=== PATIENT | female | born 1950 | race Caucasian/White ===

== ENCOUNTER 2017-01-13 13:10 | Emergency (ER) | payer MEDICARE ==
[~2017-01-13] VITALS: Ht 152.4 cm; Wt 49.5 kg
[~2017-01-13 13:10] MED LIST: ALLE25CA OR; ASPI325T OR; CALCIUM PO; COLA100C2 OR; MAGNESIUM PO; MULTIVIT PO; NAPR500T OR; OMEGA 3 PO; PERC5TAB8 OR; PERC7.5T8 OR; VITAMIN D PO
[2017-01-13] MEDS ORDERED: ASPI1TAB PO (13:22)
[2017-01-13] MEDS ORDERED: NS 1,000 ML IV ONE (16:30)
[2017-01-13 17:24] LABS: BASO # 0.1 K/mm3 (0.0-0.2); BASO % 0.9 % (0.0-1.0); EOS % 0.5 % (0.0-3.0); LARGE UNSTAINED CELL # 0.2 K/mm3 (0.0-0.4); LARGE UNSTAINED CELL % 2.3 % (0.0-4.0); LYMPH # 0.7 K/mm3 (1.5-4.5); LYMPH % 8.1 % (24.0-44.0); MEAN CORPUSCULAR HEMOGLOBIN 32.1 pg (27.0-33.0); MEAN CORPUSCULAR VOLUME 94.6 fl (80.0-96.0); MONO # 0.5 K/mm3 (0.0-0.8); NEUTROPHILS # 7.1 K/mm3 (1.8-7.7); NEUTROPHILS % 82.1 % (36.0-66.0); PLATELET COUNT, AUTOMATED 178 k/mm3 (150-450); RED CELL DISTRIBUTION WIDTH 11.8 % (11.5-14.5); WHITE BLOOD COUNT 8.6 K/mm3 (4.0-10.0)
[2017-01-13 17:31] LABS: ALBUMIN/GLOBULIN RATIO 1.21 (1.00-1.93); ALKALINE PHOSPHATASE 19 U/L (45-117); ALT/SGPT 20 U/L (12-78); AMYLASE 43 U/L (25-115); ANION GAP 9 MEQ/L (8-16); AST/SGOT 20 U/L (15-37); BILIRUBIN,DIRECT 0.3 MG/DL (0.0-0.2); BILIRUBIN,TOTAL 1.2 MG/DL (0.2-1.0); BLOOD UREA NITROGEN 14 MG/DL (7-18); CALCIUM LEVEL 9.4 MG/DL (8.8-10.2); CARBON DIOXIDE LEVEL 28 MEQ/L (21-32); CHLORIDE LEVEL 103 MEQ/L (98-107); CREATININE FOR GFR 0.77 MG/DL (0.55-1.02); GLOMERULAR FILTRATION RATE > 60.0 (>45); GLUCOSE, FASTING 87 MG/DL (80-110); POTASSIUM SERUM 4.4 MEQ/L (3.5-5.1); SODIUM LEVEL 140 MEQ/L (136-145); TOTAL PROTEIN 7.3 GM/DL (6.4-8.2)
[2017-01-13] MEDS ORDERED: ISOVUE-370 76% 100ML VIAL (Q9967) As Ordered ONE (17:36)
[2017-01-13] MEDS ORDERED: ACETAMINOPHEN TAB 650MG DOSE (2X325MG) PO ONE (17:45)
--- NOTE | 2017-01-13 19:30 | REPUSA ---
HISTORY: ABD/RECTAL PAIN - PT SAID LOWER ABD PAIN. TECHNIQUE: Axial CT imaging of abdomen and pelvis with sagittal and coronal reformatted imaging, with intravenous contrast enhancement. DLP= 307 mGy-cm. FINDINGS: Lung bases are clear. Bone windows demonstrate stable postsurgical changes at L4 and L5. There is 0.6 cm anterospondylolisthesis of L4 upon L5 and there appears to be a tiny posterior chip c orner fracture at the inferior posterior margin of the L4 vertebral body. There is a smooth walled b one cyst containing focal irregular calcifications seen at the posterior inferior margin of the ilium on image 72. Follow-up imaging is suggested as indicated to evaluate for differential diagnostic po ssibilities, although the lesion appears to be relatively benign. Liver is of normal size with no liver mass seen. Intrahepatic biliary tree is of normal caliber. Mu ltiple small gallstones are seen in the gallbladder. No pericholecystic fluid or gallbladder wall th ickening is seen. Distal common bile duct is dilated measuring 7 mm, but no common bile duct stone o r mass is seen. Spleen, pancreas, stomach, duodenum, and adrenal glands are normal. Both kidneys function without ev idence of mass lesion, obstruction, or calcification seen. Abdomen a aorta and IVC are normal and no retroperitoneal adenopathy is seen. There is an abnormal large collection of serpiginous contrast enhanced patent pelvic vein varicositie s identified across the entire pelvis from the right adnexa to the left adnexa. This may represent p elvic congestion syndrome. Patient is status post hysterectomy but there is no distinct soft tissue mass in the mid pelvis between the bladder and rectum Follow-up detailed imaging with transvaginal an d transabdominal pelvic ultrasound examination, and consideration of MRI with and without contrast is suggested as indicated to identify any associated pathologic mass lesion. The urinary bladder appea rs normal and the rectum appears normal. The remainder of the bowel is normal with no evidence of sanju wel wall mass lesion, obstruction, perforation, inflammatory reaction, or evidence of diverticulitis, and the appendix is normal. IMPRESSION: 1. There is an abnormal diffuse mass in the pelvis of contrast-enhanced patent pelvic ve in varicosities extending from the right adnexa across the mid pelvis to the left adnexa. This may r epresent pelvic congestion syndrome and clinical correlation and follow-up imaging with pelvic ultras ound and consideration of MRI suggested to evaluate for any possible underlying mass or etiology for the diffuse pelvic venous congestion. Correlate with any previous pelvic surgery. 2. Cholelithiasis without evidence of inflammatory reaction, and borderline dilatation of the distal common bile duct measuring 7 mm. 3. Postsurgical changes in the lower lumbar spine with mild degenerative spondylolisthesis. There i s also an abnormal complex but relatively benign-appearing cystic bone lesion seen in the posterior l eft ilium, and clinical correlation and follow-up imaging is suggested with consideration of plain fi lms, bone scan, and MRI examination if indicated. 4. The remainder of the CT examination of the abdomen is normal.
[2017-01-13 20:02] VITALS: BP 121/67
[2017-02-12] MEDS ORDERED: VITA100067 PO (08:09)
[2017-02-12] MEDS ORDERED: FLON1SPR (08:09)
== END 2017-01-13 20:26 | disposition home or self-care (01) ==
LOC: M ED 13:10
DX: K80.51 Calculus of bile duct without cholangitis or cholecystitis with obstruction (principal); M43.10 Spondylolisthesis, site unspecified; M43.26 Fusion of spine, lumbar region; Z79.82 Long term (current) use of aspirin; Z88.5 Allergy status to narcotic agent
CPT/HCPCS: 74177; 80048; 80076; 81001; 82150; 83605; 83690; 85025; 87086; 99283; Q9967

== ENCOUNTER 2017-02-17 11:14 | Day surgery (SDC) | payer MEDICARE ==
[~2017-02-17] VITALS: Ht 152.4 cm; Wt 49.0 kg
[~2017-02-17 11:14] MED LIST changes: +ASPI1TAB PO; +FLON1SPR; +VITA100067 PO
[2017-02-17] MEDS ORDERED: LR 1,000 ML IV ONE (11:30)
[2017-02-17] MEDS ORDERED: MIDAZOLAM INJ 2 MG/2 ML VIAL (J2250) As Ordered ONE (14:12)
[2017-02-17] MEDS ORDERED: fentaNYL 100 MCG/2 ML INJECTION (J3010) As Ordered ONE (14:12)
[2017-02-17] MEDS ORDERED: KETOROLAC 60 MG/2 ML VIAL (J1885) As Ordered ONE (14:13)
[2017-02-17] MEDS ORDERED: PROPOFOL 200 MG/20 ML VIAL As Ordered ONE (14:13)
[2017-02-17] MEDS ORDERED: ONDANSETRON 4MG/2ML VIAL (J2405) As Ordered ONE (14:13)
[2017-02-17] MEDS ORDERED: METOCLOPRAMIDE INJ 10MG/2ML VIAL (J2765) As Ordered ONE (14:13)
[2017-02-17] MEDS ORDERED: LIDOCAINE 2% INJ 100 MG/5 ML SDV (FOR ANES.) As Ordered ONE (14:13)
[2017-02-17] MEDS ORDERED: LR 1,000 ML IV SCH ×2 (15:00→15:15)
[2017-02-17] MEDS ORDERED: ONDANSETRON 4MG/2ML VIAL (J2405) IV PRN (15:15)
[2017-02-17] MEDS ORDERED: IBUPROFEN 600 MG TAB PO PRN (15:15)
[2017-02-17] MEDS ORDERED: PERCOCET 5MG/325MG TAB PO PRN (15:15)
[2017-02-17] MEDS ORDERED: fentaNYL 100 MCG/2 ML INJECTION (J3010) IV PRN (15:15)
[2017-02-17 16:30] VITALS: BP 106/62
--- NOTE | 2017-02-17 19:54 | RO ---
DATE OF PROCEDURE: 02/17/2017 PREOPERATIVE DIAGNOSIS/INDICATION FOR SURGERY: Fluid in endometrium by ultrasound in a post menopausal patient. POSTOPERATIVE DIAGNOSIS: Stenotic cervical os. PROCEDURE: Fractional dilatation and curettage (D and C), MyoSure resection. SURGEON: Dr. Kay OUTER DIAMETER TECHNICIAN: None. ANESTHESIA: LMA. BRIEF DESCRIPTION OF PROCEDURE AND FINDINGS: Marianna was brought to the operating room where sufficient LMA anesthesia was induced. She has quite an atrophic vagina with loss of caliber. We were not able to place even the Lincoln but a narrow brenda was placed and the bladder was emptied and then by palpation the cervix was identified and grasped with a single tooth tenaculum and this made it possible to visualize the cervix by placing it under some traction to see it. I then attempted to dilate, I could not get the smallest dilator in due to cervical stenosis. We used a hemostat to physically begin the dilation of the cervix and then did an endocervical curettage because of the atypical cervix. After endocervical curettage we then continued the dilation in order to enter the endometrial cavity. I did not see any significant amount of fluid come out but I placed the hysteroscope and we were able to visualize the cavity anteriorly. There may be a little thickening for somebody who is 66, but certainly no isolated polyps. Used the MyoSure light to resect the endometrium so we could be sure that we got a clear cut sample and pictures were taken of this dissection so that we could identify that we stapled 360 degrees around. Patient has a little bit of the heart shape to the fundus at this point. I do not know if this was present presently, there is certainly no large polyps or significant appearing lesion. We sampled the endometrium such as it was and of course sample be of the cervical canal due to its atypical stenosis. We then ended the procedure. Estimated blood loss for the procedure was 85 mL. FLUID REPLACEMENT: Crystalloid. COMPLICATIONS: None. CONDITION AND DISPOSITION: Marianna tolerated the procedure well and was recovering in the recovery room in good condition.
== END 2017-02-17 17:00 | disposition home or self-care (01) ==
LOC: M SDC 11:14
PROVIDERS: ATTEND Obstetrics & Gynecology
DX: N95.1 Menopausal and female climacteric states (principal); Z79.82 Long term (current) use of aspirin
CPT/HCPCS: 58558; 88305; J1885; J2250; J2405; J2765; J3010

== ENCOUNTER → 2017-04-25 | Outpatient (REF) | payer MEDICARE | LOC: M LAB REF 16:00 | PROVIDERS: ATTEND Nurse Practitioner Family | DX: J06.9 Acute upper respiratory infection, unspecified (principal); J02.9 Acute pharyngitis, unspecified ==

== ENCOUNTER 2017-12-05 11:45 | Day surgery (SDC) | payer MEDICARE ==
[2017-12-05] MEDS ORDERED: PROPOFOL 200 MG/20 ML VIAL As Ordered (12:48)
[2017-12-05] MEDS: NS 1,000 ML IV (12:49)
[2017-12-05] MEDS ORDERED: LIDOCAINE 2% INJ 100 MG/5 ML SDV (FOR ANES.) As Ordered (13:01)
== END 2017-12-05 13:48 | disposition home or self-care (01) ==
LOC: M OPP 11:45
DX: Z12.11 Encounter for screening for malignant neoplasm of colon (principal); K64.0 First degree hemorrhoids; K57.30 Diverticulosis of large intestine without perforation or abscess without bleeding; E11.9 Type 2 diabetes mellitus without complications; K92.1 Melena; Z78.0 Asymptomatic menopausal state; Z79.82 Long term (current) use of aspirin; Z79.84 Long term (current) use of oral hypoglycemic drugs; Z80.0 Family history of malignant neoplasm of digestive organs
CPT/HCPCS: G0121

== ENCOUNTER → 2020-03-03 | Outpatient (REF) | payer MEDICARE ==
[~2020-03-03] MED LIST changes: -ASPI1TAB PO; +ASPI81TA26 PO; +METF500T13 PO
[2020-03-03 17:58] LABS: C REACTIVE PROTEIN QUANTITATIV < 0.30 MG/DL (0.00-0.30)
[2020-03-03 18:10] LABS: VITAMIN B12 LEVEL 361 PG/ML (247-911)
== END ==
LOC: M LAB REF 17:16
PROVIDERS: ATTEND Nurse Practitioner Adult Health
DX: R20.3 Hyperesthesia (principal)

== ENCOUNTER → 2021-06-13 | Outpatient (CLI) | payer MEDICARE ==
--- NOTE | 2021-06-13 10:07 | REP ---
INDICATION: UPPER RESPIRATORY INFECTION. COMPARISON: 05/14/2010 the only prior TECHNIQUE: PA and lateral FINDINGS: The superior mediastinal structures are midline. The cardiac silhouette is unremarkable in size, shape, and position. The diaphragmatic surfaces of the lungs are regular, and the costophrenic angles are clear. The pulmonary auguste are clear. The imaged osseous structures are intact. IMPRESSION: There is no acute cardiopulmonary disease. <Electronically signed by Ruslan Galeano > 06/13/21 1001
== END ==
LOC: M WUC 09:34
PROVIDERS: ATTEND Nurse Practitioner Adult Health
DX: J06.9 Acute upper respiratory infection, unspecified (principal)

== ENCOUNTER → 2021-10-28 | Outpatient (CLI) | payer MEDICARE | LOC: M EKG 09:40 | PROVIDERS: ATTEND Anesthesiology | DX: Z01.810 Encounter for preprocedural cardiovascular examination (principal) ==

== ENCOUNTER → 2021-11-01 | Outpatient (CLI) | payer MEDICARE | LOC: M LABSMTC 10:02 | PROVIDERS: ATTEND Anesthesiology | DX: Z01.818 Encounter for other preprocedural examination (principal); Z11.52 Encounter for screening for COVID-19 ==

== ENCOUNTER 2021-11-06 07:59 | Day surgery (SDC) | payer MEDICARE ==
[~2021-11-06] VITALS: Ht 152.4 cm; Wt 47.6 kg
[2021-11-06] MEDS ORDERED: LR 1,000 ML IV SCH ×2 (08:05→10:25)
[2021-11-06] MEDS ORDERED: INSULIN LISPRO (NovoLOG) PER UNIT SC PRN ×2 (08:05→10:25)
[2021-11-06] MEDS ORDERED: ceFAZolin SOD 2 GM in IV 1 EA IV ONE (08:15)
[2021-11-06] MEDS ORDERED: propofoL 200 MG/20 ML VIAL As Ordered ONE (08:23)
[2021-11-06] MEDS ORDERED: ROCURONIUM BROMIDE 50 MG/5 ML VIAL As Ordered ONE (08:23)
[2021-11-06] MEDS ORDERED: MIDAZOLAM INJ 2MG/2ML VIAL (J2250 PER 1MG) As Ordered ONE (08:23)
[2021-11-06] MEDS ORDERED: fentaNYL 250 MCG/5 ML INJECTION As Ordered ONE (08:23)
[2021-11-06] MEDS ORDERED: LIDOCAINE 2% 100MG/5ML SDV (FOR ANES.) As Ordered ONE (08:24)
[2021-11-06] MEDS ORDERED: ONDANSETRON 4MG/2ML VIAL As Ordered ONE (08:24)
[2021-11-06] MEDS ORDERED: dexameTHASONE 4 MG/ML 1ML VIAL (J1100 PER 1MG) As Ordered ONE (08:24)
[2021-11-06] MEDS ORDERED: BUPIVACAINE/EPIN 0.25% 30 ML VIAL As Ordered ONE (08:54)
[2021-11-06] MEDS ORDERED: PHENYLephrine 500MCG 5ML (100MCG/ML) SYRINGE As Ordered ONE (09:35)
[2021-11-06] MEDS ORDERED: ACETAMINOPHEN 1000MG 100ML IV BTL (OFIRMEV) (J0131 PER 10MG) As Ordered ONE (09:54)
[2021-11-06] MEDS ORDERED: SUGAMMADEX SODIUM 500 MG/5 ML VIAL (BRIDION) As Ordered ONE (09:58)
[2021-11-06] MEDS ORDERED: METOCLOPRAMIDE INJ 10MG/2ML VIAL (J2765 PER 1) IV PRN (10:25)
[2021-11-06] MEDS ORDERED: MORPHINE 2 MG/ML 1ML VIAL IV PRN (10:25)
[2021-11-06] MEDS ORDERED: ONDANSETRON 4MG/2ML VIAL IV PRN (10:25)
[2021-11-06] MEDS ORDERED: PERCOCET 5MG/325MG TAB PO PRN ×2 (10:50)
[2021-11-06] MEDS ORDERED: NS 1,000 ML IV SCH (10:50)
[2021-11-06] MEDS: oxyCODONE 5MG TAB PO PRN ×2 (10:58→11:31)
[2021-11-06] MEDS: fentaNYL 100 MCG/2 ML INJECTION IV PRN ×3 (10:58→11:19)
[2021-11-06] MEDS ORDERED: KETOROLAC 30 MG/ML 1ML VIAL As Ordered ONE (11:00)
[2021-11-06] MEDS ORDERED: KETOROLAC 30 MG/ML 1ML VIAL IV ONE (11:15)
[2021-11-06 12:36] VITALS: BP 115/64
== END 2021-11-06 12:46 | disposition home or self-care (01) ==
LOC: M SDC 07:59
PROVIDERS: ATTEND Surgery
DX: K80.10 Calculus of gallbladder with chronic cholecystitis without obstruction (principal); Z78.0 Asymptomatic menopausal state
CPT/HCPCS: 47562; 88304; J0131; J0690; J1100; J1885; J2250; J2370; J2405; J3010

== ENCOUNTER → 2021-12-13 | Outpatient (CLI) | payer MEDICARE ==
[~2021-12-13] MED LIST changes: +GASTROGRAFIN SOLUTION 30ML (Q9963) As Ordered ONE; +ISOVUE-370 76% 100ML VIAL As Ordered ONE
== END ==
LOC: M RAD 07:09
PROVIDERS: ATTEND Nurse Practitioner Adult Health
DX: I71.4 Abdominal aortic aneurysm, without rupture (principal)
CPT/HCPCS: 76775; Q9963; Q9967

== ENCOUNTER → 2022-01-01 | Outpatient (CLI) | payer MEDICARE ==
[~2022-01-01] MED LIST changes: -GASTROGRAFIN SOLUTION 30ML (Q9963) As Ordered ONE; -ISOVUE-370 76% 100ML VIAL As Ordered ONE
== END ==
LOC: M WHC 14:06
PROVIDERS: ATTEND Nurse Practitioner Adult Health
DX: Z12.31 Encounter for screening mammogram for malignant neoplasm of breast (principal); Z13.820 Encounter for screening for osteoporosis; M85.88 Other specified disorders of bone density and structure, other site; M85.851 Other specified disorders of bone density and structure, right thigh; M85.852 Other specified disorders of bone density and structure, left thigh

== ENCOUNTER → 2022-03-19 | Outpatient (CLI) | payer MEDICARE | LOC: M RAD 14:43 | PROVIDERS: ATTEND Nurse Practitioner Adult Health | DX: R94.4 Abnormal results of kidney function studies (principal) ==

== ENCOUNTER → 2022-07-05 | Outpatient (REF) | payer MEDICARE | LOC: M SFHCDERM 16:57 | PROVIDERS: ATTEND Nurse Practitioner Family | DX: L57.0 Actinic keratosis (principal) ==

== ENCOUNTER 2022-12-23 05:50 | Emergency (ER) | payer MEDICARE ==
[~2022-12-23] VITALS: Ht 152.4 cm; Wt 47.7 kg
[2022-12-23 06:20] LABS: BASO # 0.1 10^3/uL (0.0-0.2); BASO % 0.7 % (0.0-1.0); EOS # 0.1 10^3/uL (0.0-0.5); EOS % 1.1 % (0.0-3.0); HEMATOCRIT 40.1 % (36.0-47.0); HEMOGLOBIN 13.2 g/dl (12.0-15.5); MEAN CORPUSCULAR HEMOGLOBIN 31.7 pg (27.0-33.0); MEAN CORPUSCULAR HGB CONC 32.9 g/dl (32.0-36.5); MEAN CORPUSCULAR VOLUME 96.2 fl (80.0-96.0); MONO # 0.9 10^3/uL (0.0-0.8); MONO % 12.6 % (2.0-8.0); NEUTROPHILS # 5.3 10^3/uL (1.5-8.5); NEUTROPHILS % 71.3 % (36.0-66.0); PLATELET COUNT, AUTOMATED 142 10^3/uL (150-450); RED BLOOD COUNT 4.17 10^6/uL (4.00-5.40); WHITE BLOOD COUNT 7.4 10^3/uL (4.0-10.0)
[2022-12-23 06:45] LABS: LIPASE 36 U/L (12-53)
[2022-12-23 06:48] LABS: ALBUMIN 3.8 G/DL (3.2-5.2); ALKALINE PHOSPHATASE 20 U/L (46-116); ALT/SGPT 20 U/L (7.0-40); AST/SGOT 20 U/L (<34); BILIRUBIN,DIRECT 0.5 MG/DL (<0.4); BILIRUBIN,TOTAL 1.7 MG/DL (0.3-1.2); TOTAL PROTEIN 6.8 G/DL (5.7-8.2)
[2022-12-23] MEDS ORDERED: NS 500 ML IV ONE (07:15)
[2022-12-23 07:22] LABS: BLOOD UREA NITROGEN 15 MG/DL (9-23); CALCIUM LEVEL 9.1 MG/DL (8.3-10.6); CARBON DIOXIDE LEVEL 27 MMOL/L (20-31); CHLORIDE LEVEL 106 MMOL/L (98-107); CREATININE FOR GFR 0.87 MG/DL (0.55-1.30); GLOMERULAR FILTRATION RATE > 60.0 (>39); GLUCOSE, FASTING 109 MG/DL (74-106); POTASSIUM SERUM 4.2 MMOL/L (3.5-5.1); SODIUM LEVEL 142 MMOL/L (136-145)
[2022-12-23] MEDS ORDERED: ISOVUE-370 76% 100ML VIAL As Ordered ONE (07:32)
[2022-12-23] MEDS ORDERED: ACETAMINOPHEN 325 MG TAB PO ONE (07:45)
[2022-12-23] MEDS ORDERED: DICY-61 PO (08:29)
[2022-12-23] MEDS ORDERED: DICYCLOMINE 10 MG CAP PO ONE (08:30)
[2022-12-23 08:32] VITALS: BP 120/59; TEMP 97.4; O2SAT 98
== END 2022-12-23 08:39 | disposition home or self-care (01) ==
LOC: M ED 05:50
DX: R10.9 Unspecified abdominal pain (principal); R19.7 Diarrhea, unspecified; Z79.899 Other long term (current) drug therapy
CPT/HCPCS: 36415; 74177; 80048; 80076; 83690; 85025; 87507; 99284; Q9967

== ENCOUNTER 2023-08-27 08:42 | Day surgery (SDC) | payer MEDICARE ==
[~2023-08-27] VITALS: Ht 152.4 cm; Wt 50.3 kg
[~2023-08-27 08:42] MED LIST changes: +B-12100010 PO; +CALCCAP4 PO; +DICY-61 PO; +IBAN150T6 PO; +ROSU10TA6 PO; +VITA100093 PO; +ZOLP5TAB PO
[2023-08-27] MEDS: NS 1,000 ML IV ONE (09:00)
[2023-08-27] MEDS ORDERED: fentaNYL 100 MCG/2 ML INJECTION As Ordered ONE (10:07)
[2023-08-27] MEDS ORDERED: propofoL 200 MG/20 ML VIAL As Ordered ONE (10:17)
[2023-08-27] MEDS ORDERED: ePHEDrine SULFATE 25 MG/5 ML(5MG/ML) SYRINGE As Ordered ONE (10:17)
[2023-08-27 10:40] VITALS: TEMP 96.9
[2023-08-27 11:00] VITALS: BP 120/61; O2SAT 95
== END 2023-08-27 11:22 | disposition home or self-care (01) ==
LOC: M OPP 08:42
PROVIDERS: ATTEND Internal Medicine Gastroenterology
DX: Z12.11 Encounter for screening for malignant neoplasm of colon (principal); Z80.0 Family history of malignant neoplasm of digestive organs; K64.0 First degree hemorrhoids; K57.30 Diverticulosis of large intestine without perforation or abscess without bleeding; R93.3 Abnormal findings on diagnostic imaging of other parts of digestive tract; K29.70 Gastritis, unspecified, without bleeding; K31.A0 Gastric intestinal metaplasia, unspecified; K31.89 Other diseases of stomach and duodenum; E11.9 Type 2 diabetes mellitus without complications; Z79.02 Long term (current) use of antithrombotics/antiplatelets; Z79.899 Other long term (current) drug therapy
CPT/HCPCS: 43239; 88305; G0105; J3010

== ENCOUNTER → 2024-08-26 | Outpatient (REF) | payer MEDICARE ==
[~2024-08-26] MED LIST changes: +IBAN150T10 PO; -IBAN150T6 PO; -ROSU10TA6 PO; +ROSU10TA61 PO
== END ==
LOC: M LAB REF 17:17
PROVIDERS: ATTEND Nurse Practitioner Family
DX: G47.00 Insomnia, unspecified (principal); R53.83 Other fatigue

== ENCOUNTER → 2025-04-08 | Outpatient (REF) | payer MEDICARE ==
[~2025-04-08] MED LIST changes: -ROSU10TA61 PO; +ROSU10TA90 PO; -ZOLP5TAB PO; +ZOLP5TAB9 PO
== END ==
LOC: M SFHCDERM 14:30
PROVIDERS: ATTEND Nurse Practitioner Family
DX: L57.0 Actinic keratosis (principal)

== ENCOUNTER → 2025-04-25 | Outpatient (CLI) | payer MEDICARE ==
[2025-04-25 15:13] LABS: ALT/SGPT 22.0 U/L (7.0-40); AST/SGOT 29.0 U/L (<34); CALCIUM LEVEL 9.6 MG/DL (8.3-10.6); CARBON DIOXIDE LEVEL 28.0 MMOL/L (20-31); CHLORIDE LEVEL 104.0 MMOL/L (98-107); CHOLESTEROL LEVEL 209.0 MG/DL (<200); CHOLESTEROL RISK RATIO 2.81 (<5); CREATININE FOR GFR 0.93 MG/DL (0.55-1.30); GLOMERULAR FILTRATION RATE 65.3 (>39); LDL CHOLESTEROL 118.9 MG/DL (<100); NON-HDL-C 134.7 MG/DL; POTASSIUM SERUM 4.3 MMOL/L (3.5-5.1); SODIUM LEVEL 139.0 MMOL/L (136-145); TRIGLYCERIDES LEVEL 79.0 MG/DL (<150)
[2025-04-25 15:15] LABS: PLATELET COUNT, AUTOMATED 151 10^3/uL (150-450)
[2025-04-26 11:20] LABS: BASO # 0.1 10^3/uL (0.0-0.2); BASO % 1.7 % (0.0-1.0); EOS # 0.2 10^3/uL (0.0-0.5); EOS % 5.8 % (0.0-3.0); LYMPH # 1.0 10^3/uL (1.5-5.0); LYMPH % 26.9 % (24.0-44.0); MONO # 0.5 10^3/uL (0.0-0.8); MONO % 15.0 % (2.0-8.0); NEUTROPHILS # 1.8 10^3/uL (1.5-8.5); NEUTROPHILS % 50.6 % (36.0-66.0)
== END ==
LOC: M LABDRAWC 07:57
PROVIDERS: ATTEND Internal Medicine
DX: E78.00 Pure hypercholesterolemia, unspecified (principal)